=== PATIENT | female | born 1970 | race African-American/Black ===

== ENCOUNTER 2018-10-17 09:11 | Outpatient (CLI) | payer OTHER ==
--- NOTE | 2018-10-18 08:47 | MMO ---
Bilateral MAMMO Bilat Screen DDI. CLINICAL HISTORY: Patient is 48 years old and is seen for screening. The patient has the following family history of breast cancer: maternal aunt. The patient has no personal history of cancer. VIEWS: The views performed were: bilateral craniocaudal and bilateral mediolateral oblique. This study has been interpreted with the assistance of computer-aided detection. MAMMOGRAM FINDINGS: There are scattered fibroglandular densities. There is a focal asymmetry seen in the middle upper region of the left breast. In the right breast, there are no suspicious masses, calcifications or areas of architectural distortion. IMPRESSION: FOCAL ASYMMETRY IN THE LEFT BREAST REQUIRES ADDITIONAL EVALUATION. SPOT COMPRESSION IS RECOMMENDED. AN ULTRASOUND EXAM IS RECOMMENDED IF NEEDED. ACR BI-RADS Category 0 - Incomplete: Need additional imaging evaluation. [facility] will notify the patient of the need for additional imaging services. MAMMOGRAPHY NOTE: 1. A negative mammogram report should not delay a biopsy if a dominant of clinically suspicious mass is present. 2. Approximately 10% to 15% of breast cancers are not detected by mammography. 3. Adenosis and dense breasts may obscure an underlying neoplasm. Reported by: BELÉN MACARIO MD Electonically Signed: [id number]
== END 2018-10-17 09:12 | disposition home or self-care (01) ==
LOC: SCSMAMMO 09:11
PROVIDERS: ATTEND Family Medicine
DX: Z12.31 Encounter for screening mammogram for malignant neoplasm of breast (principal); Z80.3 Family history of malignant neoplasm of breast; N64.89 Other specified disorders of breast
CPT/HCPCS: 77067

== ENCOUNTER 2019-01-07 08:01 | Outpatient (CLI) | payer OTHER ==
--- NOTE | 2019-01-07 08:41 | MMO ---
Left Breast MAMMO Unilat Diag DDI LT+KALLI. CLINICAL HISTORY: Patient is 48 years old and is seen for diagnostic exam. The patient has the following family history of breast cancer: maternal aunt. The patient has no personal history of cancer. VIEWS: The views performed were: left craniocaudal spot compression with tomosynthesis; left mediolateral oblique spot compression with tomosynthesis; and left mediolateral with tomosynthesis. FILMS COMPARED: The present examination has been compared to prior imaging studies performed at [facility] on 10/17/2018, and at [facility] on 01/07/2019. This study has been interpreted with the assistance of computer-aided detection. MAMMOGRAM FINDINGS: There are scattered fibroglandular densities. Additional views were performed. There is a nodule in the left breast at 11:00 (solid on US) IMPRESSION: FINDING IN THE LEFT BREAST IS SUSPICIOUS. AN ULTRASOUND-GUIDED BREAST BIOPSY IS RECOMMENDED. THE RESULTS OF THIS EXAM WERE SENT TO THE PATIENT. ACR BI-RADS Category 4 - Suspicious abnormality - biopsy should be considered D/w pt in person at 0840 hrs MAMMOGRAPHY NOTE: 1. A negative mammogram report should not delay a biopsy if a dominant of clinically suspicious mass is present. 2. Approximately 10% to 15% of breast cancers are not detected by mammography. 3. Adenosis and dense breasts may obscure an underlying neoplasm. Reported by: MICHAEL POLLOCK MD Electonically Signed: [id number]
--- NOTE | 2019-01-07 09:15 | ULT ---
LEFT BREAST ULTRASOUND: HISTORY: Abnormal mammogram of 10/17/2018. FINDINGS: Correlation is made with mammograms of 10/17/2018 and today. Sonogrpahic evaluation of the left upper inner breast demonstrates a 9 x 7 x 7 mm solid well circumsc ribed nonshadowing nodule at the 11 o'clock positions corresponding to the mammographic finding, 6 cm from the nipple. IMPRESSION: BIRADS category 4 - suspicious abnormality. Ultrasound-guided biopsy is recommended. Discussed in person with the patient at 8:40 a.m. CODE CR POS: OFF
== END 2019-01-07 08:02 | disposition home or self-care (01) ==
LOC: BICMAMMO 08:01
PROVIDERS: ATTEND Family Medicine
DX: N64.89 Other specified disorders of breast (principal)
CPT/HCPCS: G0279

== ENCOUNTER → 2019-03-19 | Day surgery (SDC) | payer OTHER ==
--- NOTE | 2019-03-19 13:57 | MMO ---
Left Breast MAMMO Unilat Diag DDI LT. CLINICAL HISTORY: Patient is 48 years old and is seen for breast biopsy. The patient has the following family history of breast cancer: maternal aunt. The patient has no personal history of cancer. VIEWS: The views performed were: left craniocaudal and left mediolateral oblique. FILMS COMPARED: The present examination has been compared to prior imaging studies performed at [facility] on 10/17/2018, and at [facility] on 01/07/2019. This study has been interpreted with the assistance of computer-aided detection. MAMMOGRAM FINDINGS: There are scattered fibroglandular densities. There is an oval mass seen in the left breast at 11 o'clock. The mass is partially obscured and is associated with a new clip IMPRESSION: MASS IN THE LEFT BREAST IS SUSPICIOUS. THE RESULTS OF THIS EXAM WERE SENT TO THE PATIENT. ACR BI-RADS Category 4 - Suspicious abnormality - biopsy should be considered MAMMOGRAPHY NOTE: 1. A negative mammogram report should not delay a biopsy if a dominant of clinically suspicious mass is present. 2. Approximately 10% to 15% of breast cancers are not detected by mammography. 3. Adenosis and dense breasts may obscure an underlying neoplasm. Reported by: MONROE MERCADO MD Electonically Signed: [id number]
--- NOTE | 2019-03-19 16:28 | ULT ---
ULTRASOUND GUIDED LEFT BREAST MASS BIOPSY: 03/19/19 INDICATION: Left breast mass at 11 o'clock position. TECHNIQUE: Informed consent was obtained. Preprocedure ultrasound identified the mass lesion within the left damaris ast 11 o'clock position. Site overlying the left breast was marked. Site was prepped and draped in th e usual sterile fashion. Buffered 1% lidocaine was administered overlying the subcutaneous tissue. Sm all dermatotomy was made. A 14 gauge Bard core biopsy device was guided down to the lesion. Three sep arate core samples were obtained in the lesion. Following the third sample, a biopsy clip was placed within the mass lesion. Pressure was held at the biopsy site until hemostasis was obtained. Patient t olerated the biopsy without difficulty. Patient is to have a follow-up left breast diagnostic mammogr am to confirm clip placement. IMPRESSION: BI-RADS 4: Suspicious Abnormality - Biopsy Should Be Considered Usually requires biopsy. Status post ultrasound guided core biopsy of the left breast mass lesion i n the 11 o'clock position. POS: OFF
== END ==
LOC: BICULT 12:26
PROVIDERS: ATTEND Family Medicine
PROC: 0H9U3ZX Drainage of Left Breast, Percutaneous Approach, Diagnostic (ICD-10-PCS; principal; 2019-03-19)
DX: N63.22 Unspecified lump in the left breast, upper inner quadrant (principal)
CPT/HCPCS: 19083; 88305